=== PATIENT | female | born 1995 | race Hispanic/Latino ===

== ENCOUNTER 2019-05-26 09:15 | Observation (INO) | payer MEDICAID, SELFPAY ==
[2019-05-26] MEDS ORDERED: EPHEDRINE 25 MG/5 ML SYRINGE ONE (09:38)
[2019-05-26] MEDS ORDERED: Glycopyrrolate 0.2 MG/ML 5 ML SYRINGE ONE (09:38)
[2019-05-26] MEDS ORDERED: Rocuronium Bromide 10 MG/ML (10ML VIAL) ONE (09:38)
[2019-05-26] MEDS ORDERED: PHENYLEPHRINE-NS 100 MCG/ML 10 ML SYRINGE ONE (09:38)
[2019-05-26] MEDS ORDERED: Lidocaine 1% PF 5 ML VIAL ONE (09:38)
[2019-05-26] MEDS ORDERED: PROPOFOL 200 MG/20 ML VIAL ONE (09:38)
[2019-05-26] MEDS ORDERED: Ondansetron PF 4 MG/2 ML Vial ONE (09:38)
[2019-05-26] MEDS ORDERED: Succinylcholine Chloride 20 MG/ML 10 ml SYRINGE FS ONE (09:38)
[2019-05-26 09:56] LABS: BHCG - Serum POSITIVE (NEGATIVE); Hemoglobin 11.7 g/dL (12.0-16.0); Mean Corpuscular HGB CONC 34.8 g/dL (32.0-36.0); Mean Corpuscular Hemoglobin 32.1 pg (27.0-31.0); Mean Corpuscular Volume 92.1 fL (78.0-98.0); Mean Platelet Volume 9.1 fL (7.4-10.4); Platelet Count 191 thou/uL (130-400); Pregs Control Background? CLEAR/WHITE (CLR/WHITE); Pregs Control Bar Appear? YES (CONTROL BAR); RBC Distribution Width 11.3 % (11.5-14.5); Red Blood Cell (RBC) Count 3.64 mill/uL (4.20-5.40); White Blood Cell (WBC) Count 20.3 thou/uL (4.8-10.8)
[2019-05-26 10:03] LABS: ALT (SGPT) 8 U/L (8-55); AST (SGOT) 11 U/L (5-34); Alkaline Phosphatase 58 U/L (40-110); Anion Gap 12 mmol/L (10-20); BUN (Urea Nitrogen) 10 mg/dL (7.0-18.7); Bilirubin, Total 0.4 mg/dL (0.2-1.2); CRP (Inflammatory) Less than 0.50 mg/dL (= or < 0.5); Calc. Creatinine Clearance 0 mL/min (70-130); Calcium 8.8 mg/dL (7.8-10.44); Carbon Dioxide 21 mmol/L (22-29); Chloride 108 mmol/L (98-107); Estimated GFR-MDRD 51; Glucose 178 mg/dL (70-105); Lipase 20 U/L (8-78); Potassium 3.7 mmol/L (3.5-5.1); Sodium 137 mmol/L (136-145)
[2019-05-26 10:26] LABS: Band 12 % (5-11); Lymphocytes 6 % (21-51); MDiff Complete? YES; Monocytes 3 % (0-10); Neutrophil 79 % (42-75); Platelet Morphology Comment Appears Adequate; Polychromasia SLIGHT = 2-3 cells (100X) (0-2/hpf)
[2019-05-26] MEDS ORDERED: Fentanyl 100 MCG/2 ML VIAL ONE ×4 (10:37→14:00)
[2019-05-26] MEDS ORDERED: EPINEPHrine 1 MG/ML AMP ONE (10:52)
[2019-05-26] MEDS ORDERED: Bupivacaine PF 0.5% 30 ML VIAL ONE (10:52)
--- NOTE | 2019-05-26 11:09 | ULT ---
ULTRASOUND PELVIS DOPPLER DUPLEX: DATE: 05/26/2019. TIME: 10:46 AM. HISTORY: A 24-year-old female with ectopic . COMPARISON: None. TECHNIQUE: Transabdominal ultrasound used to evaluate intrapelvic contents with shore scale, color flow, and spec tral analysis. Initially, the study was ordered to be performed specifically without transvaginal ultrasound (later, a transvaginal ultrasound was performed: see separate report for that). FINDINGS: Uterus: 7 x 2.5 x 4.5 cm. Endometrial stripe: 1.5 cm (15 mm). No intrauterine gestation sac is visualized. Bilateral ovaries are not visualized. There is a small amount of free fluid in the cul-de-sac. There is an approximately 1 x 1 cm anechoic focus in the left adnexa. It appears cystic. It could b e a tiny pocket of free fluid, but the evaluation is very limited without transvaginal images. IMPRESSION: 1. A small amount of free fluid in the cul-de-sac. 2. Thickened endometrial stripe, 15 mm. 3. No intrauterine gestation sac visualized. 4. Nonspecific 1 cm anechoic area in the left adnexa. Uncertain whether this represents free fluid or a cystic lesion. POS: [facility]
--- NOTE | 2019-05-26 11:14 | HP ---
The time of first evaluation was 10:35. Time of first notification was 10:30. LOCATION: ER. REASON FOR SURGERY: Ruptured ectopic with hemoperitoneum, unstable. HISTORY OF PRESENT ILLNESS: In brief, this is a 24-year-old female, who did not know that she was , making her a G1, with possible LMP of April 26, but this was unsure. She has anywhere from 4 to 6 weeks EGA. She arrives because of fainting at home several times and increasing pelvic pain. While in the ER, she has passed out again and her pulse has gone from 80 to a value of about 115 to 120. FAST bedside ultrasound has revealed blood in the pericolic gutters and in the posterior cul-de-sac. She is aware of her diagnosis. PAST MEDICAL HISTORY: Noncontributory. PAST SURGICAL HISTORY: None. OB HISTORY: She is a G1, P0. SOCIAL HISTORY: Negative for alcohol, tobacco, and drugs. PHYSICAL EXAMINATION: VITAL SIGNS: Blood pressure is 117/90, pulse is about 115 to 120. GENERAL: She appears pale and is tachypneic with a respiratory rate of around 25 or so. ABDOMEN: Slightly distended with tenderness on deep palpation. While I was in the room, our departmental ultrasound was there, which confirmed presence of blood in the abdomen/cul-de-sac, and no intrauterine . PELVIC: Deferred. LABORATORY DATA: Original labs include a positive test, hematocrit value of 33, and a creatinine of 1.3. ASSESSMENT: This is a primigravida at around 4 to 6 weeks with suspected ruptured ectopic . The patient has fainted up to 8 times this morning with one being witnessed here in the emergency room. Due to the nature of her clinical picture, tachycardia, syncope, and finding of blood in the abdomen, I have elected to take her to surgery. Due to the suspected nature of the brisk bleed, I will defer laparoscopy and proceed with a mini laparotomy. This was explained to the patient. As the patient was not comfortable enough to give consent herself, though she gave verbal consent, her sister served as proxy and signed the consent form. I consented the patient in Romanian and the patient did allow her sister to give permission after asking her to do so. PLAN: 1. OR aware. 2. Dr. Ross with me at bedside (Anesthesia). 3. Type and cross x2. 4. IV fluid resuscitation. 5. I suspect that the elevated serum creatinine is due to dehydration and blood loss rather than an acute renal issue. 6. We are awaiting OR availability. Job ID: [id number]
--- NOTE | 2019-05-26 11:24 | PDOC.EVN ---
Event Note - Event Note Event Note: Lab check: BHCG is approx 3300 In OR 5 now...patient in OR now. I am here with her. One unit PRBC in use now Plan: minilap for hemoperitoneum
[2019-05-26] MEDS ORDERED: Ondansetron PF 4 MG/2 ML Vial IVP PRN ×2 (12:36→12:58)
[2019-05-26] MEDS ORDERED: Acetaminophen 325 MG/10.15 ML UDCUP PO PRN (12:36)
[2019-05-26] MEDS ORDERED: HYDROcodone/Acetaminophen 5/325 mg Tablet PO PRN (12:36)
[2019-05-26] MEDS ORDERED: Butorphanol Tartrate 1 MG/ML VIAL SLOW IVP PRN (12:37)
[2019-05-26] MEDS ORDERED: Lactated Ringer's 1,000 ML IV SCH (12:45)
[2019-05-26] MEDS ORDERED: diphenhydrAMINE 25 MG CAP PO PRN (12:58)
[2019-05-26] MEDS ORDERED: Zolpidem Tartrate 5 MG TAB PO PRN (12:58)
[2019-05-26] MEDS ORDERED: diphenhydrAMINE 50 MG/ML VIAL IVP PRN (12:58)
[2019-05-26] MEDS ORDERED: Promethazine HCl 25 MG/ML VIAL SLOW IVP PRN (12:58)
[2019-05-26] MEDS ORDERED: diphenhydrAMINE 50 MG/ML VIAL IM PRN (12:58)
[2019-05-26] MEDS ORDERED: fentaNYL Citrate/PF 2,000 MCG in Sodium Chloride 0.9% 60 ML IV PRN (12:58)
[2019-05-26] MEDS ORDERED: Promethazine HCl 25 MG/ML VIAL IM PRN ×2 (12:58)
[2019-05-26] MEDS ORDERED: Ondansetron HCl/PF 4 MG/2 ML Vial IVP PRN (12:58)
[2019-05-26] MEDS ORDERED: Naloxone HCl 0.4 mg/ml Vial IV PRN (12:58)
[2019-05-26] MEDS ORDERED: Communication Order-Pharmacy FS SCH (13:00)
--- NOTE | 2019-05-26 13:23 | OP ---
DATE OF PROCEDURE: 05/26/2019 TIME OF PROCEDURE: Roughly 12:30. LOCATION: The main OR room #5. PREOPERATIVE DIAGNOSIS: Unstable patient, who is a G1, P0, with suspected hemoperitoneum and ruptured ectopic. POSTOPERATIVE DIAGNOSES: 1. Unstable patient, who is a G1, P0, with suspected hemoperitoneum and ruptured ectopic. 2. Hemoperitoneum of approximately 1200 mL. PROCEDURE PERFORMED: Exploratory laparotomy through a Pfannenstiel incision and left salpingectomy. SURGEON: Destin Garcia MD. POST EXCHANGE MANAGER: Balbina Falcon ([id number]). ANESTHESIA: General. IV FLUIDS: As per Anesthesia record. ANTIBIOTICS: Ancef, per Anesthesia record. BLOOD PRODUCTS: The patient was receiving 1 unit when she arrived in the OR and was given a second unit in the OR (2 units packed cells total). URINE OUTPUT: Clear urine (per Anesthesia record). FINDINGS: 1. Upon entry into the abdominal pelvic cavity, jailene hemoperitoneum was noted along with clots. After inspection of the adnexa, we found a left ectopic about 3 x 3 cm at the isthmic area. This was thin and bleeding. 2. Hemostasis post salpingectomy. 3. 3X3cm mass at isthmus of the tube about 1cm from cornua. This site was bleeding due to serosa stretch. ESTIMATED BLOOD LOSS: Approximately 1200 mL from the hemoperitoneum. The blood loss from the procedure itself was less than 5-10 mL at maximum. COMPLICATIONS: None. COUNTS: Correct. PATHOLOGY: Left tubal segment. DISPOSITION: To recovery room in good and stable condition. TECHNIQUE: After proper informed consent was explained, the patient was taken to the main OR where she was placed under general endotracheal anesthesia. The patient's abdomen and lower pelvis were prepped and draped in the usual sterile fashion as was the patient's vulvovaginal area. She was placed in Sebastian stirrups in case we needed vaginal access. We then made a Pfannenstiel skin incision with a scalpel and entered the abdomen in the usual Pfannenstiel fashion. Bovie cautery was used to dissect the subcutaneous tissue down to the level of fascia and fascia was opened with Alexander scissors without incident. We entered the abdominopelvic cavity in the midline of the median raphe of the rectus. After entering to the peritoneum, hemoperitoneum was noted and this was suctioned out and irrigated. We then turned our attention to the patient's left tube which was identified and clamped with a series of peon clamps. The entire left tube was excised as that was not able to be saved. The mesosalpinx was rendered hemostatic by combination of 2-0 Vicryl ties and then Bovie cautery on cut mode, that was done conservatively. After confirming hemostasis and after copious irrigation, all instruments were removed from the abdominopelvic cavity. It is important to note that we did use a medium O Omero ring retractor for visualization during the procedure. Subcutaneous tissue was copiously irrigated and then we began our closure. The fascia was closed with 0-Vicryl using 2 stitches of running nonlocking fashion. We then used a 3-0 plain gut to close the subcutaneous tissue. The skin was closed with 4-0 Vicryl and then Dermabond was placed over the incision. At the end the procedure, all counts were correct and then she was transferred to recovery room in good and stable condition. Job ID: [id number] [facility]ILITY[facility]
--- NOTE | 2019-05-26 14:44 | PRG ---
DATE OF SERVICE: 05/26/2019 TIME OF EVALUATION: Time of evaluation was roughly 1400 hours. TIME OF DICTATION: 1408 hours. PostOP LOCATION: Recovery room, bed 9. In brief, I went in to go see Ms. yL being about 1 hour postop. I find her to be alert and oriented, having a moderate degree of pain from the incision. The incision site had a moderately soaked Telfa pad, which I replaced using sterile gloves. I also placed Dermabond above the incision site in the small area that was having a minimal amount of ooze. I believe this is coming from the superficial incision site. Once again, I placed Dermabond on the incision for improved hemostasis at the incision. I also replaced the Telfa and Tegaderm for better tracking. Her pulse was around 108 to 111. Blood pressure was stable in the 120s/80s. She was receiving IV pain medication for comfort measures. She will go to the MRI SPECIALIST floor for recovery. Job ID: [id number] [facility]
[2019-05-26 15:40] VITALS: BMI 26.5
[2019-05-26] MEDS: Lactated Ringer's 1,000 ML IV SCH ×2 (16:16→22:17)
[2019-05-26 17:25] LABS: Lactic Acid 2.9 mmol/L (0.5-2.2)
[2019-05-27 06:33] LABS: ALT (SGPT) 7 U/L (8-55); AST (SGOT) 13 U/L (5-34); Albumin 3.5 g/dL (3.5-5.0); Alkaline Phosphatase 52 U/L (40-110); Anion Gap 9 mmol/L (10-20); BUN (Urea Nitrogen) 6 mg/dL (7.0-18.7); Bilirubin, Total 0.6 mg/dL (0.2-1.2); Calc. Creatinine Clearance 161 mL/min (70-130); Calcium 8.6 mg/dL (7.8-10.44); Carbon Dioxide 23 mmol/L (22-29); Chloride 110 mmol/L (98-107); Estimated GFR-MDRD Greater than 90; Globulin 2.5 g/dL (2.4-3.5); Glucose 108 mg/dL (70-105); Sodium 138 mmol/L (136-145)
[2019-05-27 06:42] LABS: #Monocytes 1.1 thou/uL (0.11-0.59); #Neutrophils 13.8 thou/uL (1.40-6.50); %Basophils 0.1 % (0.0-1.0); %Lymphocytes 6.3 % (21.0-51.0); %Monocytes 6.8 % (0.0-10.0); %Neutrophils 86.9 % (42.0-75.0); Hemoglobin 11.2 g/dL (12.0-16.0); Mean Corpuscular HGB CONC 34.5 g/dL (32.0-36.0); Mean Corpuscular Hemoglobin 31.4 pg (27.0-31.0); Mean Platelet Volume 9.3 fL (7.4-10.4); Platelet Count 117 thou/uL (130-400); Platelet Morphology Comment Appears Decreased; RBC Distribution Width 12.1 % (11.5-14.5); Red Blood Cell (RBC) Count 3.55 mill/uL (4.20-5.40); White Blood Cell (WBC) Count 15.9 thou/uL (4.8-10.8)
[2019-05-27 06:58] LABS: Hemoglobin 11.4 g/dL (12.0-16.0)
--- NOTE | 2019-05-27 07:37 | DIS ---
DATE OF ADMISSION: 05/26/2019 DATE OF DISCHARGE: 05/27/2019 PRINCIPAL DIAGNOSIS: 1. Ruptured ectopic . 2. Hemoperitoneum. PRINCIPLE PROCEDURES: 1. Mini-laparotomy. 2. Left salpingectomy. 3. 2 units of packed red blood cell transfusion. SERVICES CONSULTED: Anesthesia. HOSPITAL COURSE: In brief, this is a 24-year-old female, who is a G1, P0 at unsure gestational age when she presented but was approximately 4 to 6 weeks based on her best estimate. She arrived after fainting multiple times at home and in the ER with abdominal pain. She was found to be and FAST ultrasound by the ER physician (Dr. Danilo Judd) confirmed free fluid in the abdomen. She was taken to the OR for mini-laparotomy as she was felt to be unstable. She received 1 unit in the ER and a second unit in the operating room. Please turn to the operative note for full details, but in brief, she had about 1200 mL of blood in the abdomen from a left tubal ectopic that was bleeding. We performed a left salpingectomy and hemostasis was assured. Incision was closed with suture and Dermabond. The patient's preop hematocrit value was 33 and on the morning of discharge dated 05/27/2019, the hematocrit was 33.6. Her creatinine interestingly was 1.31 on admission, but after hydration and replacement of blood, it was 0.59 pointing to the fact that she was initially volume depleted. I evaluated the patient on day of discharge, which was 05/27/2019 at about 0700 hours and I found her to be clinically improved. She had ambulated to the restroom and was feeling better. Hematocrit value once again on the morning of discharge was 33, which was same as on arrival. Plan was to discharge her home on 05/27/2019 at approximately noon with followup in 2 weeks at [facility] [place]. I did fax the referral to that office and I wrote down the information to the patient. The patient will stay with family, who will help her in this postop. Vitals show that she is afebrile and normotensive with a pulse in the 90s. Abdomen is soft and nontender on my bedside evaluation. Job ID: [id number]
[2019-05-27] MEDS ORDERED: FLU VACC QS2019-20(6MOS UP)/PF 60 MCG/0.5 ML SYRINGE IM ONE (09:00)
[2019-05-27 11:49] VITALS: BP 99/55; TEMP 98.8
== END 2019-05-27 16:00 | disposition home or self-care (01) ==
LOC: ERS 09:15 → 3SE 15:00
PROVIDERS: ADMIT Obstetrics & Gynecology; ATTEND Obstetrics & Gynecology
PROC: 0UT60ZZ Resection of Left Fallopian Tube, Open Approach (ICD-10-PCS; principal; 2019-05-26)
PROC: 10T20ZZ Resection of Products of Conception, Ectopic, Open Approach (ICD-10-PCS; 2019-05-26)
DX: O00.102 Left tubal pregnancy without intrauterine pregnancy (principal); O08.1 Delayed or excessive hemorrhage following ectopic and molar pregnancy; O99.619 Diseases of the digestive system complicating pregnancy, unspecified trimester; K66.1 Hemoperitoneum
CPT/HCPCS: 36415; 36430; 76856; 80053; 83605; 83690; 84702; 84703; 85025; 86140; 86850; 86900; 86901; 88305; 88342; 96360; 96361; G0378; J0171; J2001; J2405; J2704; J3010; J3490; P9016; S0020